=== PATIENT | male | born 1940 | race Caucasian/White ===

== ENCOUNTER → 2018-08-10 | Day surgery (SDC) | payer MEDICARE ==
[2018-08-03 14:51] VITALS: BMI 28.5
[~2018-08-10] MED LIST: IOPAMIDOL-250 50ML BTL IV ONE; SODIUM CHLORIDE 0.9% 1,000 ML IV SCH
[2018-08-10 11:33] VITALS: RESP 18; TEMP 97.9
[2018-08-10 12:02] LABS: INR 2.4 (<1.2); Prothrombin Time 21.9 sec (9.0-12.0)
--- NOTE | 2018-08-10 12:46 | P.PCN ---
Preoperative Diagnosis: Indication 100% RV pacing, pacemaker dependency Reduced LV systolic function from baseline ejection fraction is decreasing 2-D echo Shortness of breath on exertion Cinefluoroscopy of the leads Atrial lead in right atrial appendage RV lead in RV apex No fractures or breaks Left upper extremity venogram 50 mL of IV dye injected in the left upper extremity. Patent left subclavian and axillary vein Emmie Proceed with upgrade to a biventricular pacemaker electively Discussed with patient
[2018-08-10 13:44] VITALS: BP 144/78; PULSE 72
== END | disposition home or self-care (01) ==
LOC: CATHEP 10:53
PROVIDERS: ATTEND Internal Medicine Clinical Cardiac Electrophysiology
DX: Z45.018 Encounter for adjustment and management of other part of cardiac pacemaker (principal); I48.2 Chronic atrial fibrillation; I11.0 Hypertensive heart disease with heart failure; I50.32 Chronic diastolic (congestive) heart failure; R60.0 Localized edema; E78.5 Hyperlipidemia, unspecified; I42.9 Cardiomyopathy, unspecified; I44.2 Atrioventricular block, complete; I70.209 Unspecified atherosclerosis of native arteries of extremities, unspecified extremity; I70.0 Atherosclerosis of aorta; F17.210 Nicotine dependence, cigarettes, uncomplicated; Z79.01 Long term (current) use of anticoagulants; Z79.899 Other long term (current) drug therapy
CPT/HCPCS: 36005; 75820; 76000; 85610; Q9966

== ENCOUNTER 2018-09-14 06:54 | Day surgery (SDC) | payer MEDICARE ==
[~2018-09-14 06:54] MED LIST changes: -IOPAMIDOL-250 50ML BTL IV ONE
[2018-09-14 07:58] LABS: INR 2.2 (<1.2); Prothrombin Time 19.8 sec (9.0-12.0)
[2018-09-14 08:00] LABS: Calcium 8.6 mg/dL (8.4-10.2); Potassium 3.3 mmol/L (3.5-5.1)
[2018-09-14] MEDS ORDERED: MIDAZOLAM 2 MG/2 ML VIAL ONE (08:09)
[2018-09-14] MEDS ORDERED: fentaNYL (PF) 50 MCG/ML 2 ML AMP ONE (08:09)
[2018-09-14] MEDS ORDERED: PROPOFOL 10 MG/ML 20 ML VIAL IV ONE (08:09)
[2018-09-14] MEDS: ceFAZolin IN SWFI 2 GM/20 ML SYRINGE IVP ONE ×2 (08:32→08:35)
[2018-09-14] MEDS ORDERED: LIDOCAINE 1% INJ 10MG/ML (20 ML MDV) SQ ONE (09:08)
[2018-09-14] MEDS ORDERED: ceFAZolin 1,000 MG in SODIUM CHLORIDE 0.9% IRRIGATIO 250 ML IRRIGATION ONE (09:30)
[2018-09-14] MEDS ORDERED: HYDROcodone/APAP 5-325MG 1 EACH TAB PO PRN (11:29)
[2018-09-14] MEDS ORDERED: ACETAMINOPHEN IV (For NPO) 1,000 MG in EMPTY BAG 1 BAG IVPB ONE (11:29)
[2018-09-14] MEDS ORDERED: ACETAMINOPHEN TAB 325 MG TAB PO PRN (11:29)
[2018-09-14] MEDS: FUROSEMIDE 40 MG TAB PO SCH (13:27)
[2018-09-14 15:12] VITALS: BMI 28.9
[2018-09-14] MEDS: ceFAZolin IN SWFI 2 GM/20 ML SYRINGE IVP SCH ×2 (16:49→20:41)
[2018-09-14] MEDS ORDERED: WARFARIN 5 MG TAB PO SCH (18:00)
[2018-09-14] MEDS ORDERED: ATORVASTATIN 80 MG TAB PO SCH (21:00)
--- NOTE | 2018-09-14 21:04 | PCN ---
PROCEDURE NOTE 77-year-old male patient with worsening heart failure symptoms, mild cardiomyopathy, underlying bradycardia with 100% RV pacing and underlying permanent atrial fibrillation. He is brought in for upgrade to a biventricular pacemaker for management of heart failure and 100% RV pacing and underlying bradycardia. Patient was brought to the EP lab in a fasting state. Written informed consent was obtained prior to the procedure. The left shoulder area was prepped and draped as per protocol. 1% lidocaine was used for local anesthesia. A 4 cm incision was made directly over the previous surgical site and carried down to the level of the pectoralis muscle. The generator was removed from the pocket. Partial capsulectomy was performed. Access was obtained in the left axillary vein and a guidewire was placed in the axillary vein, but this would not advance into the innominate vein or the SVC. 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 With serial dilators, the innominate vein was dilated to accommodate a 9-[place] short sheath along with the coronary sinus sheath. The coronary sinus catheter was then placed in the CS and the sheath was placed in the CS. Venogram was performed. The patient had a middle cardiac vein, posterior lateral vein, anterior vein as well as septal veins with the tributaries into the LV. We attempted to place this in one lead in one of the tributaries that was heading laterally but the lead would not advance there despite multiple angioplasty wires and multiple sheaths using multiple other techniques. Therefore the lead was then placed in the anterior vein and remained very stable in this position. The coronary sinus os had acute bend and the post lateral vein took off right after this vein and therefore this vein was avoided for stability issues. Hence, it took a long time to place the lead since the lead would not pass into the lateral tributary of the septal branch. After the lead was placed in the anterior vein, thresholds were measured. They were excellent and there was no diaphragmatic stimulation noted and the sheath was removed. The lead was secured to the underlying pectoralis muscle with 2 nonabsorbable sutures. The LV lead was a model #4398, 88 cm in length and serial number [id number]. The pacing threshold from LV 1 to LV 2 was 0.7 V at 0.5 milliseconds. Pacing impedance of 649 ohms. The RV pacing threshold 0.7 V at 0.5 milliseconds. Pacing impedance of 931 ohms. The patient was in atrial fibrillation. The generator that was removed was a dual-chamber pacemaker SEDR 01 Sensia with serial number [id number]. The new generator that was implanted was a biventricular pacemaker model number W4TR03, serial number [id number]. The leads and generator were then placed in subfascial pocket. The wound was closed in 3 layers and dressed per protocol. The generator was secured to the pectoralis muscle. RESULTS: Successful upgrade to a biventricular pacemaker, LV lead placed in the anterior vein. Venoplasty performed for the stenosed innominate vein. A long procedure because the lateral tributary of the septal branch could not be accessed. The lead would not pass into this vein despite multiple sheaths and wires being placed down this vein. The patient tolerated the procedure well without any acute complications. MMODL / IJN: [id number] /
[2018-09-15] MEDS: ceFAZolin IN SWFI 2 GM/20 ML SYRINGE IVP SCH ×2 (01:46→08:52)
[2018-09-15 05:11] VITALS: RESP 18
[2018-09-15 07:17] VITALS: BP 156/88; PULSE 77; TEMP 98.3
--- NOTE | 2018-09-15 07:55 | P.DS ---
Providers Attending physician: Yoni Dumont Primary care physician: [facility] Hospital Course: Patient is doing well. No chest discomfort dizziness lightheadedness. He still has occasional scattered rhonchi on lung examination but he is not wheezing he has no respiratory distress he looks very comfortable lying flat in bed. I encouraged him to walk around before discharge On examination his blood pressure is elevated was elevated even yesterday Heart sounds are normal breath sounds reduced bilaterally with scattered rhonchi no crackles Pacemaker site is healed well Impression Permanent atrial fibrillation 100% RV paced on account of bradycardia Upgrade to a biventricular pacemaker yesterday and doing well Suggest completion of IV antibiotics, chest x-ray and device interrogation today. He may go home thereafter and follow-up in the device clinic 5 days His medication changes include Stopping enalapril Increase losartan to 150 mrem daily to be taken the evening Increase Toprol-XL to 150 mg daily in the morning Increase Lasix to 40 mg daily in the morning New all other medications including anticoagulation unchanged Discussed with the nurse discussed with the patient I gave him the prescriptions and hydrocodone separately on a sheet of paper Patient Condition at Discharge: Stable Plan - Discharge Summary Discharge Rx Participant: No New Discharge Prescriptions: New Furosemide [Lasix] 40 mg PO DAILY #90 tablet Losartan [Cozaar] 150 mg PO DAILY #140 tab Metoprolol Succinate (ER) [Toprol XL] 150 mg PO DAILY #90 tab Discontinued Enalapril Maleate [Vasotec] 10 mg PO DAILY Losartan Potassium [Cozaar] 100 mg PO DAILY Metoprolol Succinate [Toprol Xl] 100 mg PO DAILY Furosemide [Lasix] 20 mg PO DAILY No Action Atorvastatin Calcium [Lipitor] 80 mg PO HS Omeprazole [PriLOSEC] 20 mg PO AC-BRKFST Allopurinol [Zyloprim] 100 mg PO BID Umeclidinium Brm/Vilanterol Tr [Anoro Ellipta 62.5-25 Mcg INH] 1 puff INHALATION DAILY Ibuprofen [Motrin] 800 mg PO Q8H PRN PRN Reason: Pain Warfarin [Coumadin] 5 mg PO DAILY Amoxicillin 500 mg PO Q8H Discharge Medication List Allopurinol [Zyloprim] 100 mg PO BID 08/03/18 [History] Atorvastatin Calcium [Lipitor] 80 mg PO HS 08/03/18 [History] Ibuprofen [Motrin] 800 mg PO Q8H PRN 08/03/18 [History] Omeprazole [PriLOSEC] 20 mg PO AC-BRKFST 08/03/18 [History] Umeclidinium Brm/Vilanterol Tr [Anoro Ellipta 62.5-25 Mcg INH] 1 puff INHALATION DAILY 08/03/18 [History] Warfarin [Coumadin] 5 mg PO DAILY 08/03/18 [History] Amoxicillin 500 mg PO Q8H 09/14/18 [History] Furosemide [Lasix] 40 mg PO DAILY #90 tablet 09/14/18 [Rx] Losartan [Cozaar] 150 mg PO DAILY #140 tab 09/15/18 [Rx] Metoprolol Succinate (ER) [Toprol XL] 150 mg PO DAILY #90 tab 09/15/18 [Rx] Follow up Appointment(s)/Referral(s): Yoni Dumont MD [STAFF PHYSICIAN] - 1 Week (Device clinic follow-up in [address] Meadows in 4 months) Activity/Diet/Wound Care/Special Instructions: PATIENT EDUCATION MATERIAL Instructions following a heart rhythm device implant. 1. Keep dressing DRY for 5 DAYS. You may cover the area with Saran or Cling Wrap, prior to a shower. 2. The dressing will be removed in the Device Clinic at [facility]. Absorbable sutures were used to close the wound. 3. Avoid raising the left arm above the shoulder level. 4 week restriction 4. Avoid arm movements, like backscratching, rubbing the head, or pulling on a cord. 4 weeks restriction 5. Gentle range of motion movements of the shoulder, closest to the incision should be performed to avoid a frozen shoulder. (Pendulum exercises of the shoulder) 6. The opposite arm may be used freely. 7. Avoid driving for 7 days. 8. Avoid activities such as golfing, swimming, weed whacking, lifting more than 10 pounds weight, bowling, gymnastics and weight training/lifting. (6 weeks restriction) 9. Activities such as wood chopping with an axe, pull-ups in the gymnasium, power lifting, arc-welding, being close to home induction cooktops will always be a problem. 10. Arm sling is only a reminder not to raise the arm above the head. You do not need to keep the arm completely immobilized. Your free to move the arm and use it and for normal activities. In case of any problems, please call [facility], Nelda Harding, @ [phone], Attention: Device Clinic Device clinic follow-up in 5 days Follow-up with Dr. Meadows in 3 months Increase Lasix to 40 mg by mouth daily Stop enalapril Increase losartan to 150 mg by mouth daily in the evening Increase metoprolol succinate 250 mg by mouth daily in the morning Continue warfarin Discharge Disposition: HOME SELF-CARE
--- NOTE | 2018-09-15 08:59 | XR ---
EXAMINATION TYPE: XR chest 2V DATE OF EXAM: 09/15/2018 COMPARISON: NONE TECHNIQUE: PA and lateral views submitted. HISTORY: Lead placement check FINDINGS: Left lower lobe consolidation and small effusion seen. No overt failure. There is elevation left jabari diaphragm. Arthropathy of the shoulders seen with no pneumothorax or interstitial edema. Hypertrophic and degenerative change of the spine. There is a multi lead pacemaker noted in position. IMPRESSION: 1. Left lower lobe infiltrate and small effusion. 2. Multilevel E pacemaker
[2018-09-15] MEDS ORDERED: METOPROLOL SUCCINATE (ER) 100 MG TAB.ER.24H PO SCH (09:00)
[2018-09-15] MEDS ORDERED: LOSARTAN 50 MG TAB PO SCH (09:00)
[2018-09-15] MEDS ORDERED: LISINOPRIL 20 MG TAB PO SCH (09:00)
[2018-09-15] MEDS: FUROSEMIDE 40 MG TAB PO SCH (09:02)
== END 2018-09-15 12:11 | disposition home or self-care (01) ==
LOC: CATHEP 06:54 → 1SOBS 11:26 → CATHEP 09-15 12:11
PROVIDERS: ATTEND Internal Medicine Clinical Cardiac Electrophysiology
DX: I48.2 Chronic atrial fibrillation (principal); I87.1 Compression of vein; I42.9 Cardiomyopathy, unspecified; I11.0 Hypertensive heart disease with heart failure; I50.9 Heart failure, unspecified; Z45.018 Encounter for adjustment and management of other part of cardiac pacemaker; I50.32 Chronic diastolic (congestive) heart failure; K21.9 Gastro-esophageal reflux disease without esophagitis; E78.5 Hyperlipidemia, unspecified; F17.210 Nicotine dependence, cigarettes, uncomplicated; Z79.01 Long term (current) use of anticoagulants; Z79.1 Long term (current) use of non-steroidal anti-inflammatories (NSAID); Z79.899 Other long term (current) drug therapy
CPT/HCPCS: 33225; 33229; 80048; 85610; 71046; C1769 ×8; C1894; C1892; C1730; C1887; C2621; C1900; J2250; J2001; J3010; J2704; J0690 ×2; 33214